=== PATIENT | male | born 1950 | race African-American/Black ===

== ENCOUNTER 2017-04-13 20:31 | Emergency (ER) | payer MEDICAID, MEDICARE, OTHER ==
[~2017-04-13] VITALS: Ht 175.3 cm; Wt 74.8 kg
[~2017-04-13 20:31] MED LIST: ALBUTEROL SULF8.5 GM INH; AZITHROMYCIN250 MG ORAL; NKM; OMEPRAZOLE20 M2 ORAL; PROMETHAZINE-C118 M1 ORAL
[2017-04-13 21:01] VITALS: BP 137/89
--- NOTE | 2017-04-13 21:16 | Emergency Room Report ---
History of Present Illness General Chief Complaint: Lower Extremity Injury Source: Patient Present Illness HPI The patient presents with increased right knee pain. He fell into a hole on Wednesday and twisted it. He's been having constant pain since that time. His been icing it and keeping it elevated to the pain is still persistent at this time. He states he is unable to walk on it appeared medial pain and does not radiate. Not taking any medication for pain today denies gout Allergies: Coded Allergies: No Known Allergies (Unverified , 10/05/15) Nursing Documentation-[facility] Past Medical History: No Stated History Physical Exam Vital Signs Date Time Temp Pulse Resp B/P (MAP) Pulse Ox O2 Delivery O2 Flow Rate FiO2 04/13/17 21:01 97.9 67 16 137/89 99 Room Air Medical Decision Making Diagnostic Impression: Primary Impression: Right knee sprain Status: improved Disposition: HOME, SELF-CARE Condition: Improved Louis Milian M.D. Apr 13, 2017 21:16
[2017-04-13] MEDS ORDERED: BACITRACIN15 GM TOPIC (21:50)
[2017-04-13] MEDS ORDERED: TRAMADOL HCL50 MG ORAL (21:50)
[2017-04-13] MEDS ORDERED: IBUPROFEN600 MG ORAL (21:50)
[2017-04-13] MEDS ORDERED: oxyCODONE HCL/Acetaminophen 5/325mg ORAL ONE (22:30)
[2017-04-13 22:38] VITALS: BP 133/68
--- NOTE | 2017-04-14 14:32 | Diagnostic Imaging Report ---
Indication: TRAUMA, pain Technique: 3 views of the right knee Comparison: None Findings:No acute fractures. No dislocations. Joint spaces are preserved. There is a small superior pole patellar traction osteophyte Impression:No acute process This agrees with the preliminary interpretation provided by the emergency room physician
== END 2017-04-13 22:40 | disposition home or self-care (01) ==
LOC: EMR 21:30
DX: S83.91XA Sprain of unspecified site of right knee, initial encounter (principal); W19.XXXA Unspecified fall, initial encounter; Y93.9 Activity, unspecified; Y92.9 Unspecified place or not applicable; M25.761 Osteophyte, right knee
CPT/HCPCS: 99284